=== PATIENT | female | born 1960 | race Caucasian/White ===

== ENCOUNTER 2021-12-24 10:43 | Emergency (ER) | payer MEDICAID, OTHER ==
[~2021-12-24] VITALS: Ht 167.6 cm; Wt 56.7 kg
--- NOTE | 2021-12-24 10:57 | NUR ---
BIB RA 878 FROM HOME,DIZZINESS SINCE SHE WAS SEEN IN [facility] FOR A GL[facility] "THIS WEEKEND." ATTCHED TO MONITOR, VITALS ARE WITHIN NORMAL LIMITS. AWIAITNG MD ORDERS.
--- NOTE | 2021-12-24 11:02 | NUR ---
NAYANA Johnson FA 18. LABS DRAWN AND COLLECTED AT BEDSIDE.
--- NOTE | 2021-12-24 11:04 | NUR ---
COVID TEST COLLECTED AND SENT
[2021-12-24 11:21] LABS: BASOPHILS % (AUTO) 0.2 % (0.0-2.0); EOSINOPHILS % (AUTO) 1.6 % (0.0-6.0); HEMATOCRIT 38 % (33-45); HEMOGLOBIN 12.8 g/dL (11.5-14.8); LYMPHOCYTES # (AUTO) 2.1 K/uL (0.8-4.8); LYMPHOCYTES % (AUTO) 32.4 % (20.0-44.0); MEAN CORPUSCULAR HGB CONC 33 g/dl (31.0-36.0); MEAN CORPUSCULAR VOLUME 92 fL (82-100); MONOCYTES # (AUTO) 0.2 K/uL (0.1-1.30); MONOCYTES % (AUTO) 3.6 % (2.0-12.0); NEUTROPHILS % (AUTO) 62.2 % (43.0-81.0); PLATELET COUNT (AUTO) 192 K/uL (150-450); RED BLOOD CELL COUNT(AUTO) 4.17 MIL/uL (4.0-5.2); WHITE BLOOD COUNT (AUTO) 6.5 K/uL (4.3-11.0)
--- NOTE | 2021-12-24 11:30 | NUR ---
URINE COLLECTED AND SENT
[2021-12-24 11:43] LABS: CREATININE 0.3 mg/dL (0.6-1.3); POTASSIUM 5.9 mmol/L (3.5-5.1)
[2021-12-24 11:50] LABS: BILIRUBIN,URINE NEGATIVE (NEGATIVE); COLOR,URINE YELLOW (YELLOW); LEUKOCYTE ESTERASE ,URINE NEGATIVE (NEGATIVE); NITRITE, URINE NEGATIVE (NEGATIVE); PROTEIN,URINE TRACE mg/dl (NEGATIVE); UGLUCOSE NEGATIVE (NEGATIVE); UROBILINOGEN,URINE 0.2 EU/dL (0.2)
[2021-12-24 11:51] LABS: ALBUMIN 3.7 g/dL (3.4-5.0); BILIRUBIN,TOTAL 0.4 mg/dL (0.2-1.0); TOTAL PROTEIN, SERUM 8.7 g/dL (6.4-8.2)
--- NOTE | 2021-12-24 12:16 | NUR ---
RAJESH GRANADOS CALLED AND THEY WILL HAVE MD GIVE US A CALL BACK
[2021-12-24 12:41] LABS: BACTERIA,URINE None seen /HPF (None Seen); SQUAMOUS EPITHELIAL CELL,UR Few /HPF (None Seen); WBC,URINE 0-2 /HPF (0-3)
--- NOTE | 2021-12-24 16:55 | NUR ---
CALLED DORINDA GRANADOS AWAITING BED ASSIGNMENT AT [facility] AND WILL CALL US BACK.
[2021-12-24 17:00] VITALS: BP 122/84
--- NOTE | 2021-12-24 17:01 | NUR ---
Patient does not wish to proceed with medical care recommended by Dr. Hernandez. Patient given information related to possible complications, up to and including , which could occur as a result of leaving the hospital at this time. Patient verbalizes understanding of risks involved due to leaving against medical advice. Patient has signed AMA form.
== END 2021-12-24 17:01 | disposition left against medical advice (07) ==
LOC: ER 11:11
DX: F10.229 Alcohol dependence with intoxication, unspecified (principal); Y90.8 Blood alcohol level of 240 mg/100 ml or more; S09.90XA Unspecified injury of head, initial encounter; W19.XXXA Unspecified fall, initial encounter; Y92.89 Other specified places as the place of occurrence of the external cause; Z88.2 Allergy status to sulfonamides; Z20.822 Contact with and (suspected) exposure to COVID-19; Z53.29 Procedure and treatment not carried out because of patient's decision for other reasons
CPT/HCPCS: 99285; 93005; 71045; 70450; 85025; 80048; 80076; 84132; 81001; 36415; 87426; 80143; 80320; 80307; C9803; G0480

== ENCOUNTER 2021-12-25 15:06 | Emergency (ER) | payer MEDICAID, OTHER ==
[~2021-12-25] VITALS: Ht 167.6 cm; Wt 56.7 kg
--- NOTE | 2021-12-25 16:18 | NUR ---
PRACHI met with pt. at bedside. The pt. is a 61 year old female who was BIBRA to ED. PRACHI met with pt. at bedside. The pt. is alert & iriented x 4 and appears unkempt. The pt. states she wants to de transferred to [facility] to receive treatment as that is her insurance provider. PRACHI clarified reason for seekingmedical attention and pt. stated "I just dont feel well". PRACHI encouraged pt. to be more specific so we may provide appropriate details to [facility] for possible transfer. Patient states that she is an alcoholic and her mind does not feel right. Per patient, she feels sad at home and drinks wine "too much and too often". Per pt. she has tried doing outpatient rehab "but its on the computer after the pandemic and that does not work for me. SW completed mini mental status exam and pt. denies current SI/HI and denies hallucinations. Pt. does not meet criteria for a 5150 LPS hold at this time. Pt. states she has seen a psychiatrist years ago and does not know if she has been diagnosed with a mental illness. Pt. denies taking medications for her mental health treatment. Pt. stated she fell at home his weekend due to "drinking too much" and hit her head and went to [facility] and was medically cleared there. PRACHI offered referal to rehab and pt. refused. PRACHI provided pt. with mental health resources and encoraged her to call [facility] and enroll in mental health services through them. PRACHI also provided addiction resources and pt. accepted them. DC PLAN: Per patient's request, PRACHI called her brother, Ezekiel [phone] to see if he could help with transporting pt. back home [[address] [facility] [address]]. Ezekiel arrange an Uber as he is at work until this evening. PRACHI notified and [facility]. A nurse will accompany the pt. to her uber. Ezekiel will call ED and provide Uber details. ADDICTION RESOURCES For Drugs and Alcohol [facility] sober living Referrals For Rehabilitation once sober Address:[address] [place] [address] [facility] [address] [place] [address] Detox/residential [facility] Substance Abuse Helpline ([facility]) Outpatient, residential treatment, recovery support for youth/adults [facility] www.actionfamiForensic Logic [facility] Teen programs for drug/alcohol education and support Dion Pearce [place]. Program for adults, sliding scale provides support and education [employer] www.EXENDISLycera.org [place]; Detox/residential treatment programs; transition to sober living [facility] www.cri-help.org [place]; Outpatient and residential treatment programs; transition to sober living [facility] TEL: [phone] [facility] [place] [facility] Guille [place]; Outpatient education and supportive programs for teens and adults [place] [facility] www.oasiswomensrecjohn douglas [facility]rench [facility].org [place]; Residential treatment and work program for females only [place] www.[facility].Vigilistics [employer]: Outpatient/residential treatment program for teens and young adults [facility] www.military health system.org [facility] Detox, inpatient, outpatient for adults and youth [facility], [facility]. [place]; Outpatient programs and referrals to community residential programs. Alcoholics Anonymous -SFV information and meeting and scheduleswww.aa-intergroup.org Tp-Qzvc-Zpucjrt https://al-anon.org/ [place] support groups for family of alcoholics. Marijuana Anonymous www.madistrict6.org -SFV listing of meetings Narcotics Anonymous www.na.org SOBER LIVING RESOURCES [facility] www.soberhousing.net A non-profit agency that provides resources to recovery and sober living homes throughout [place], [place], [facility] Men's Sober Living Homes: A Work in Progress, [facility], [place] [facility] Women's Sober Living Homes: [facility] x [phone] [place], [place] [facility] Co[facility] Sober Living Homes: [facility] Counseling--Outpatient [facility] [address] [facility] [place] [address] (Specializes in in-depth psychotherapy for emotional distress: anxiety, depression, interpersonal conflicts, life transitions, childhood abuse) [facility] [address] [place] [address] (Assist with solving problem marital difficulties, separation & divorce, aging parents, & grief, chronic & terminal illness) [facility] [address] [place] [address] (Deal with loss & grief, anxiety, marital difficulties) Homebound/Mental Health Services [address], [address] [place] [address] (Provide in-home mental services to people who are incapable of leaving their homes) [facility] for Needs of the Elderly Senior Service/Resource Center [address] [place] [address] [facility] [address] [place] [address] Mental Health Services Merary Forte [address] [place] [address] Services: Outpatient therapy for children, teens, young adults, adults, older adults, and families; Psychiatric services, medication support Psychiatric Outpatient Services [facility] Partial Hospitalization and Intensive Outpatient Program (Managed Care and [facility] Only)[address] [facility] [phone] [facility] Partial Hospitalization and Outpatient [id number] [place], [place] [phone] [facility] [address] [facility]. [address] [place], [place] [phone] [facility] Partial Hospitalization and Outpatient [id number] [facility] Guille GarrettMONTROSE, [phone] Crisis and Hotline Telephone Numbers 24-Hour service unless stated [place] Crisis Hotlines: Ngt4u.inc [facility] Mental Health/Crisis Line........[phone] Suicide Prevention Center (24 Hours).......882.718.8000 Suicide Prevention Crisis Center.......196.100.6263 (24 Hours) Assaults Against Women Hotline.........652.286.9249 (24 Hours -- [facility]) Women and Children Crisis Residential...........[phone] (24 Hours) Child Abuse Hotline............450.600.4246 [facility] (24 Hours)..........753.387.7855 Alcoholics Anonymous (24 Hours)..........817.695.6313 Cocaine Anonymous (24 Hours)............510.189.3880 Narcotics Anonymous (24 Hours)..........[phone] [address] On License Of [facility] [address], [place] [address]
[2021-12-25 17:00] VITALS: BP 116/88
--- NOTE | 2021-12-25 17:03 | NUR ---
Patient discharged to home in stable condition. Written and verbal after care instructions given. Patient verbalizes understanding of instruction. Ambulatory with steady gait, brother called [employer] and picked up.
== END 2021-12-25 17:02 | disposition home or self-care (01) ==
LOC: ER 15:08
DX: F32.A Depression, unspecified (principal); Z88.2 Allergy status to sulfonamides

== ENCOUNTER 2022-02-05 19:40 | Emergency (ER) | payer MEDICAID ==
[~2022-02-05] VITALS: Ht 162.6 cm; Wt 52.2 kg
--- NOTE | 2022-02-05 20:27 | NUR ---
Patient discharged to home in stable condition. Written and verbal after care instructions given. Patient verbalizes understanding of instruction. pt ambulatory with a steady gait
[2022-02-05 22:25] VITALS: BP 134/89
== END 2022-02-05 22:25 | disposition home or self-care (01) ==
LOC: ER 19:41
DX: F10.20 Alcohol dependence, uncomplicated (principal); Z85.3 Personal history of malignant neoplasm of breast; Z88.2 Allergy status to sulfonamides; Y90.9 Presence of alcohol in blood, level not specified

== ENCOUNTER 2022-03-28 01:36 | Emergency (ER) | payer MEDICAID ==
[~2022-03-28] VITALS: Ht 167.6 cm; Wt 67.6 kg
[2022-03-28 01:40] VITALS: BP 139/88
== END 2022-03-28 02:15 | disposition left against medical advice (07) ==
LOC: ER 01:41
DX: Z53.21 Procedure and treatment not carried out due to patient leaving prior to being seen by health care provider (principal)

== ENCOUNTER 2022-03-29 01:03 | Emergency (ER) | payer MEDICAID ==
[~2022-03-29] VITALS: Ht 167.6 cm; Wt 67.6 kg
[2022-03-29 01:26] VITALS: BP 129/66
--- NOTE | 2022-03-29 01:36 | NUR ---
BIBRA 38 FROM OP C/O RIGHT HIP ACHE, AND DRANK ONE BOTTLE OF WINE. PT A/OX4. TOLERATING R/A WELL WITH NO RESP DISTRESS; RR EVEN AND NON LABORED. SAFETY MEASURES IN PLACE.
--- NOTE | 2022-03-29 01:47 | NUR ---
SHIRA SALDIVAR AT PT'S BEDSIDE
--- NOTE | 2022-03-29 02:04 | NUR ---
Patient discharged in stable condition and escorted by security. Written and verbal after care instructions given. Patient verbalizes understanding of instruction.
== END 2022-03-29 02:07 | disposition home or self-care (01) ==
LOC: ER 01:15
DX: F10.129 Alcohol abuse with intoxication, unspecified (principal); L08.9 Local infection of the skin and subcutaneous tissue, unspecified; Z88.2 Allergy status to sulfonamides; Y90.9 Presence of alcohol in blood, level not specified

== ENCOUNTER 2022-10-08 00:57 | Emergency (ER) | payer MEDICAID ==
[~2022-10-08] VITALS: Ht 170.2 cm; Wt 54.4 kg
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
--- NOTE | 2022-10-08 01:23 | NUR ---
DR. ROBISON AT BEDSIDE
--- NOTE | 2022-10-08 01:25 | NUR ---
PATIENT TAKEN TO CT [facility]IA [facility]
[2022-10-08] MEDS ORDERED: CEPHALEXIN MONOHYDRATE 500 MG CAPSULE PO ONE ×2 (01:30→01:40)
--- NOTE | 2022-10-08 01:40 | NUR ---
PT BACK FROM CT
[2022-10-08] MEDS ORDERED: CEPH500C2 PO (03:53)
--- NOTE | 2022-10-08 04:20 | NUR ---
Patient discharged to home in stable condition. Written and verbal after care instructions given. Patient verbalizes understanding of instruction.
[2022-10-08 04:41] VITALS: BP 127/73; TEMP 98.1
== END 2022-10-08 04:41 | disposition home or self-care (01) ==
LOC: ER 01:01
DX: S90.411A Abrasion, right great toe, initial encounter (principal); F17.200 Nicotine dependence, unspecified, uncomplicated; Z79.899 Other long term (current) drug therapy; Z88.2 Allergy status to sulfonamides; W18.39XA Other fall on same level, initial encounter; Y93.89 Activity, other specified; Y92.89 Other specified places as the place of occurrence of the external cause; Y99.8 Other external cause status
CPT/HCPCS: 70450-TC; 73660-TC

== ENCOUNTER 2023-09-06 23:23 | Emergency (ER) | payer MEDICAID ==
[~2023-09-06] VITALS: Ht 172.7 cm; Wt 56.7 kg
[~2023-09-06 23:23] MED LIST: CEPH500C2 PO
[2023-09-06 23:28] VITALS: BP 134/71; TEMP 98; O2SAT 98
[2023-09-06] MEDS: IV NS 0.9% 1,000 ML IV ONE (23:50)
[2023-09-07 00:01] LABS: BASOPHILS % (AUTO) 0.6 % (0.0-2.0); EOSINOPHILS # (AUTO) 0.2 K/uL (0.0-0.7); EOSINOPHILS % (AUTO) 2.1 % (0.0-6.0); HEMATOCRIT 38 % (33-45); HEMOGLOBIN 12.8 g/dL (11.5-14.8); LYMPHOCYTES # (AUTO) 3.7 K/uL (0.8-4.8); MEAN CORPUSCULAR HEMOGLOBIN 31 PG (26.0-33.0); MEAN CORPUSCULAR HGB CONC 34 g/dl (31.0-36.0); MEAN CORPUSCULAR VOLUME 91 fL (82-100); MONOCYTES # (AUTO) 0.3 K/uL (0.1-1.30); NEUTROPHILS # (AUTO) 3.4 K/uL (1.8-8.9); NEUTROPHILS % (AUTO) 44.3 % (43.0-81.0); PLATELET COUNT (AUTO) 267 K/uL (150-450); RED BLOOD CELL COUNT(AUTO) 4.14 MIL/uL (4.0-5.2); WHITE BLOOD COUNT (AUTO) 7.6 K/uL (4.3-11.0)
[2023-09-07 00:09] LABS: CALCIUM, SERUM 9.4 mg/dL (8.5-10.1); CREATININE 0.4 mg/dL (0.6-1.3)
[2023-09-07 00:16] LABS: ALBUMIN 3.4 g/dL (3.4-5.0); BILIRUBIN,TOTAL 0.2 mg/dL (0.2-1.0); TOTAL PROTEIN, SERUM 8.2 g/dL (6.4-8.2)
== END 2023-09-07 00:49 | disposition left against medical advice (07) ==
LOC: ER 23:34
DX: F10.129 Alcohol abuse with intoxication, unspecified (principal); F17.200 Nicotine dependence, unspecified, uncomplicated; Z79.899 Other long term (current) drug therapy; Z88.2 Allergy status to sulfonamides; Y90.8 Blood alcohol level of 240 mg/100 ml or more
CPT/HCPCS: 99283; 96360; 85025; 36415; 80053; 80320; J7030; G0480

== ENCOUNTER 2023-09-11 20:16 | Emergency (ER) | payer MEDICAID ==
[~2023-09-11] VITALS: Ht 162.6 cm; Wt 70.3 kg
[2023-09-11] MEDS ORDERED: FOLIC ACID 1 MG TABLET ONE (20:36)
[2023-09-11] MEDS ORDERED: THIAMINE HCL 100 MG TABLET ONE (20:36)
[2023-09-11] MEDS: THIAMINE HCL 100 MG TABLET PO ONE (20:38)
[2023-09-11] MEDS: IV NS 0.9% 1,000 ML BAG IV ONE (20:38)
[2023-09-11] MEDS: FOLIC ACID 1 MG TABLET PO ONE (20:38)
[2023-09-11 20:41] LABS: BASOPHILS % (AUTO) 0.3 % (0.0-2.0); EOSINOPHILS # (AUTO) 0.1 K/uL (0.0-0.7); EOSINOPHILS % (AUTO) 0.6 % (0.0-6.0); HEMATOCRIT 39 % (33-45); HEMOGLOBIN 13.3 g/dL (11.5-14.8); LYMPHOCYTES # (AUTO) 2.4 K/uL (0.8-4.8); LYMPHOCYTES % (AUTO) 29.2 % (20.0-44.0); MEAN CORPUSCULAR HEMOGLOBIN 30 PG (26.0-33.0); MEAN CORPUSCULAR HGB CONC 34 g/dl (31.0-36.0); MEAN CORPUSCULAR VOLUME 90 fL (82-100); MONOCYTES # (AUTO) 0.4 K/uL (0.1-1.30); MONOCYTES % (AUTO) 4.4 % (2.0-12.0); NEUTROPHILS # (AUTO) 5.5 K/uL (1.8-8.9); NEUTROPHILS % (AUTO) 65.5 % (43.0-81.0); PLATELET COUNT (AUTO) 244 K/uL (150-450); RED BLOOD CELL COUNT(AUTO) 4.38 MIL/uL (4.0-5.2); RED CELL DISTRIBUTION WIDTH 14.4 % (11.5-15.0); WHITE BLOOD COUNT (AUTO) 8.4 K/uL (4.3-11.0)
[2023-09-11 20:48] LABS: CALCIUM, SERUM 9.7 mg/dL (8.5-10.1); CREATININE 0.5 mg/dL (0.6-1.3); POTASSIUM 3.5 mmol/L (3.5-5.1)
[2023-09-11 21:49] VITALS: BP 135/84; TEMP 98.2; O2SAT 97
== END 2023-09-11 21:49 | disposition home or self-care (01) ==
LOC: ER 20:19
DX: R29.6 Repeated falls (principal); F10.10 Alcohol abuse, uncomplicated; F19.10 Other psychoactive substance abuse, uncomplicated; F17.200 Nicotine dependence, unspecified, uncomplicated; R26.81 Unsteadiness on feet; Z85.3 Personal history of malignant neoplasm of breast; Z90.11 Acquired absence of right breast and nipple; Z88.2 Allergy status to sulfonamides
CPT/HCPCS: 99284; 96360; 70450; 93005; 85025; 80048; 36415; J7030

== ENCOUNTER 2023-09-15 02:23 | Emergency (ER) | payer MEDICAID ==
[~2023-09-15] VITALS: Ht 172.7 cm; Wt 56.7 kg
[2023-09-15] MEDS: IV NS 0.9% 1,000 ML IV ONE ×2 (03:46→05:02)
[2023-09-15 03:52] LABS: BASOPHILS % (AUTO) 0.3 % (0.0-2.0); EOSINOPHILS # (AUTO) 0.1 K/uL (0.0-0.7); EOSINOPHILS % (AUTO) 1.7 % (0.0-6.0); HEMATOCRIT 36 % (33-45); HEMOGLOBIN 12.3 g/dL (11.5-14.8); LYMPHOCYTES # (AUTO) 2.2 K/uL (0.8-4.8); LYMPHOCYTES % (AUTO) 34.5 % (20.0-44.0); MEAN CORPUSCULAR HEMOGLOBIN 32 PG (26.0-33.0); MEAN CORPUSCULAR HGB CONC 35 g/dl (31.0-36.0); MEAN CORPUSCULAR VOLUME 91 fL (82-100); MONOCYTES # (AUTO) 0.3 K/uL (0.1-1.30); NEUTROPHILS # (AUTO) 3.8 K/uL (1.8-8.9); NEUTROPHILS % (AUTO) 58.5 % (43.0-81.0); PLATELET COUNT (AUTO) 192 K/uL (150-450); RED BLOOD CELL COUNT(AUTO) 3.92 MIL/uL (4.0-5.2); RED CELL DISTRIBUTION WIDTH 14.7 % (11.5-15.0); WHITE BLOOD COUNT (AUTO) 6.5 K/uL (4.3-11.0)
[2023-09-15 04:15] LABS: ALBUMIN 3.4 g/dL (3.4-5.0); BILIRUBIN,TOTAL 0.3 mg/dL (0.2-1.0); CALCIUM, SERUM 9.1 mg/dL (8.5-10.1); CREATININE 0.4 mg/dL (0.6-1.3); POTASSIUM 3.6 mmol/L (3.5-5.1); TOTAL PROTEIN, SERUM 7.7 g/dL (6.4-8.2)
[2023-09-15 06:32] LABS: APPEARANCE,URINE CLEAR (CLEAR); BILIRUBIN,URINE NEGATIVE (NEGATIVE); BLOOD, URINE 3+ Ery/uL (NEGATIVE); COLOR,URINE YELLOW (YELLOW); KETONES,URINE NEGATIVE (NEGATIVE); LEUKOCYTE ESTERASE ,URINE NEGATIVE (NEGATIVE); NITRITE, URINE NEGATIVE (NEGATIVE); PH,URINE 5.5 (5.0-8.0); PROTEIN,URINE NEGATIVE (NEGATIVE); UGLUCOSE NEGATIVE (NEGATIVE); UROBILINOGEN,URINE 0.2 EU/dL (0.2)
[2023-09-15 06:42] LABS: ADD URINE CULTURE NO; BACTERIA,URINE Rare /HPF (None Seen); RBC,URINE 21-50 /HPF (0-2); SQUAMOUS EPITHELIAL CELL,UR Rare /HPF (None Seen); WBC,URINE 0-2 /HPF (0-3)
[2023-09-15 06:54] LABS: AMPHETAMINE, URINE NEGATIVE (NEGATIVE); BARBITURATE, URINE NEGATIVE (NEGATIVE); CANNABINOID, URINE NEGATIVE (NEGATIVE); COCCAINE, URINE NEGATIVE (NEGATIVE); OPIATE, URINE NEGATIVE (NEGATIVE); PHENCYCLIDINE SCREEN,URINE NEGATIVE (NEGATIVE)
[2023-09-15 07:00] LABS: BENZODIAZEPINE, URINE POSITIVE (NEGATIVE)
[2023-09-15 08:41] VITALS: BP 118/66; TEMP 98; O2SAT 98
== END 2023-09-15 08:43 | disposition home or self-care (01) ==
LOC: ER 02:53
DX: F10.229 Alcohol dependence with intoxication, unspecified (principal); Z85.3 Personal history of malignant neoplasm of breast; Z90.11 Acquired absence of right breast and nipple; Z88.2 Allergy status to sulfonamides; Z60.2 Problems related to living alone; Y90.8 Blood alcohol level of 240 mg/100 ml or more
CPT/HCPCS: 99283; 96360; 96361; 85025; 81001; 36415; 80053; 80320; 80307; J7030 ×2; G0480